=== PATIENT | female | born 1950 | race African-American/Black ===

== ENCOUNTER 2024-10-16 12:05 | Emergency (ER) | payer OTHER ==
[~2024-10-16] VITALS: Ht 160 cm; Wt 73.0 kg
[2024-10-16 12:16] VITALS: PULSE 70; RESP 18; TEMP 36.8; O2SAT 99
[2024-10-16] MEDS: SODIUM CHLORIDE 0.9% 1,000 ML IV ONE (12:56)
[2024-10-16 13:33] VITALS: BP 166/57
== END 2024-10-16 13:53 | disposition left against medical advice (07) ==
LOC: ER 12:05
DX: R51.9 Headache, unspecified (principal); E78.00 Pure hypercholesterolemia, unspecified; I10 Essential (primary) hypertension
CPT/HCPCS: 99283; 96360; 93005; J7030